=== PATIENT | male | born 1995 | race Caucasian/White ===

== ENCOUNTER 2020-10-11 17:01 | Emergency (ER) | payer BC, SELFPAY ==
[2020-10-11 17:19] VITALS: BP 162/91; PULSE 113; RESP 20; TEMP 36.9; O2SAT 100
--- NOTE | 2020-10-11 17:21 | ECG_ITS ---
Measurements Intervals [place] Rate: 118 P: 34 CA: 167 QRS: 11 QRSD: 92 T: 23 QT: 313 QTc: 439 Interpretive Statements SINUS TACHYCARDIA ABNORMAL ECG Electronically Signed On 10-12-2020 6:57:45 CDT by Aki Tsang D.O.
--- NOTE | 2020-10-11 18:06 | ED.ARRPALP ---
HPI - Arrhythmia/Palpitations General Chief Complaint: Weakness Stated Complaint: elevated heart rate/feels hot/weakness Source: patient and RN notes reviewed Limitations: no limitations History of Present Illness HPI narrative: The obese patient, non-smoker/nondrinker, presents with palpitations. Patient states he has a weeklong history of intermittent palpitations and concurrent loose stools with occ rebel diarrhea-and he has been hydrating with clear liquid/free water. No fever, vomiting, abdominal pain, presyncope, caffeine use, street drugs, diet supplements, chest pain. He was Covid vaccinated with Pfizer about 10 days ago; no CP, cough, S OB, loss of taste/smell. His PMH is noncontributory as he has had no surgeries, normal childhood diseases, immunizations UTD, no known cardiac or thyroid disease. He is current concerned he has anxiety, as he has felt occasional palpitations in the near past for several years. Triage remarkable for pulse of 113, BP 162 systolic, EKG shows sinus tach at 119. Advised to go to higher-level care facility to higher level testing if not improved tomorrow, because for early diagnosis of serious problems [endocrine (diabetes, thyroid), anemia, cardiac, metabolic causes, etc.], clear specific symptoms do not develope until later Related Data Home Medications Medication Instructions Recorded Confirmed Carol 10/11/20 Allergies Allergy/AdvReac Type Severity Reaction Status Date / Time No Known Allergies Allergy Verified 10/11/20 17:18 Review of Systems Review of Systems: Narrative: General/Constitutional: No weight loss,fever Eyes: N0: Redness,discharge Ears/Nose/Throat: No: Epistaxis,ear discharge Respiratory: Denies: Hemoptysis Gastrointestinal: No Vomiting, Bleeding-rectal Skin: No Lumps, eruption Neurologic: No Focal Weakness,Sz Hematologic: Denies: Petechiae/Purpura Psychiatric: No: Suicida ideationl All Other Systems: Reviewed and Negative [facility] Comments At time of signature, agree with nursing past medical, surgical, social and family history. There is no relevant family history pertinent to the presenting complaint Exam Narrative: Exam Narrative: General Appearance: Well appearing, No distress EYE: PERRLA, Conjunctiva clear Ears: External ear normal Nose: Normal nose Mouth/Throat: Normal appearing, Normal lips Neck: Supple Respiratory: Airway patent, No respiratory distress Cardiovascular: RRR, mild tachy Abdomen: Soft, Non-tender, No massess, No organomegaly Musculoskeletal: Full ROM Skin: Warm, Dry Neurological: A&O x3, CN II-X intact Psychiatric: Normal mood, Normal affect Course Course Emergency Course: EKG: Sinus Tach 118, pr .167, QRS .09, QTc 383 Vital Signs Vital signs: Vital Signs Temperature 98.5 F 10/11/20 17:19 Pulse Rate 113 H 10/11/20 17:19 Respiratory Rate 20 10/11/20 17:19 Blood Pressure 162/91 H 10/11/20 17:19 Pulse Oximetry 100 10/11/20 17:19 Temperature 98.5 F 10/11/20 17:19 Pulse Rate 113 H 10/11/20 17:19 Respiratory Rate 20 10/11/20 17:19 Blood Pressure 162/91 H 10/11/20 17:19 Pulse Oximetry 100 10/11/20 17:19 MDM - Arrhythmia/Palpitations Lab Data Labs: Lab Results 10/11/20 10/11/20 10/11/20 Range/Units 17:30 17:40 18:19 POC Capillary Glucose 93 (65-105) mg/dl SARS-CoV-2 RNA (RT-PCR) Negative POC SARS CoV-2 Ag Negative (Negative) Discharge Plan Discharge Clinical Impression: Palpitations with regular cardiac rhythm, Hx of diarrhea Patient Disposition: Home, Self-Care Condition: Stable Instructions: Heart Palpitations (ED) Additional Instructions: Hydrate today with balanced solutions; you may use OTC preparations like Imodium for diarrhea Go to hospital if not improved or certainly if worsens for higher level testing Prescriptions: No Action Carol RF: 0 Follow-up/Referrals: PHYSICIAN,[employer] [Primary Care Provider
[2020-10-11 18:22] LABS: Glucose Point of Care 93 (65-105)
[2020-10-13 19:39] LABS: SARS-CoV-2 RNA PCR Negative
== END 2020-10-11 18:11 | disposition home or self-care (01) ==
PROVIDERS: Emergency Provider Emergency Medicine
DX: R00.2 Palpitations (principal); R19.7 Diarrhea, unspecified; Z20.822 Contact with and (suspected) exposure to COVID-19
CPT/HCPCS: 82948; 87426; 93005; 99213; C9803; G0463; U0003; U0005